=== PATIENT | female | born 1970 | race Caucasian/White ===

== ENCOUNTER → 2017-06-09 | Outpatient (CLI) | payer OTHER ==
[~2017-06-09] MED LIST: ACET-1718 PO; ALBU2.5V36 INH; ALBU8.5H12 IH; BUDE10.25 IH; CHOL10005 PO; ERYT1OIN3 OP; FLUT1DIS28 IH; HYDR115S2 PO; IBUP800T37 PO; MULT1CAP59 PO; ONDA4TAB PO; PNEI IJ; PRED-1 PO; TRAZ-156 PO; [UNRECOGNIZED DRUG - OTHER]
--- NOTE | 2017-06-09 15:28 | RADIOLOGY IMAGING REPORT ---
FACILITY: [facility] PATIENT NAME: LIVAN GARCIA : [id number] MR: [id number] V: [id number] EXAM DATE: [id number] ORDERING PHYSICIAN: RASHEED OCAMPO TECHNOLOGIST: Ashley Brunner PROCEDURE:BILATERAL DIGITAL SCREENING MAMMOGRAM WITH CAD ASSISTED INTERPRETATION & 3D TOMOSYNTHESIS COMPARISON:Prior mammograms 04/08/16, 04/03/15, 02/24/14, 02/14/14, 05/14/12, 02/11/11 INDICATIONS:SCREENING FINDINGS: Dense heterogeneous fibroglandular tissue is seen throughout the breasts. The parenchymal pattern has remained stable allowing for difference in mammographic technique & patient positioning. There is no evidence of malignant appearing mass, malignant appearing calcifications or other secondary sign of malignancy in either breast. DIAGNOSTIC CATEGORY 2--BENIGN FINDING. RECOMMENDATIONS: ROUTINE MAMMOGRAM AND CLINICAL EVALUATION. IMPRESSION: BIRADS 2: Benign finding No significant abnormality is seen. Dictated by: Scarlett Alarcon M.D. on 06/09/2017 at 10:05 Transcribed by: MIGUEL on 06/09/2017 at 10:48 Approved by: Scarlett Alarcon M.D. on 06/09/2017 at 15:27 [facility]
== END ==
LOC: MAMO 01:05
PROVIDERS: ATTEND Obstetrics & Gynecology
DX: Z12.31 Encounter for screening mammogram for malignant neoplasm of breast (principal)
CPT/HCPCS: 77063; 77067

== ENCOUNTER → 2018-07-06 | Outpatient (CLI) | payer OTHER ==
[~2018-07-06] MED LIST changes: -TRAZ-156 PO; +TRAZ50TA34 PO
--- NOTE | 2018-07-10 10:08 | RADIOLOGY IMAGING REPORT ---
FACILITY: [facility] [place] PATIENT NAME: LIVAN GARCIA : [id number] MR: [id number] V: [id number] EXAM DATE: [id number] ORDERING PHYSICIAN: NIMA DORAN TECHNOLOGIST: Liyah Richards PROCEDURE:BILATERAL DIGITAL SCREENING MAMMOGRAM WITH CAD ASSISTED INTERPRETATION & 3D TOMOSYNTHESIS COMPARISON:Prior mammograms 06/09/17, 04/08/16, 04/03/15, 02/24/14, 02/14/14, 05/14/12. INDICATIONS:SCREENING FINDINGS: The breasts are heterogeneously dense which can obscure small masses. Just medial to midline in the posterior depth of the Left breast on the Left CC view is an ovoid mass like area best appreciated on Tomographic slice 17 for which Spot compression view is recommended. Just posterior to midline on the Right MLO view in the middle 1/3 there is an ovoid nodular area for which Spot compression view is recommended. There are also 2 nodular areas in the upper portion of the Right breast on the Right MLO view in the anterior 1/3. All of these are pest appreciated on Tomographic slice 11. In the upper portion of the Left breast in the middle 1/3 on the Left MLO view Tomographic slice 16 is an ovoid mass like area for which Spot compression view is recommended. DIAGNOSTIC CATEGORY 0--INCOMPLETE: NEED ADDITIONAL IMAGING EVALUATION. RECOMMENDATIONS: ADDITIONAL MAMMOGRAPHIC VIEWS REQUIRED: BILATERAL BREASTS. ULTRASOUND: BILATERAL BREASTS. IMPRESSION: BIRADS 0: Incomplete. Additional views of both breasts recommended as described and possibly bilateral breast Ultrasound depending on the additional imaging findings. Dictated by: Scarlett Alarcon M.D. on 07/06/2018 at 9:22 Transcribed by: MIGUEL on 07/06/2018 at 14:10 Approved by: Scarlett Alarcon M.D. on 07/10/2018 at 10:07 [facility]
== END ==
LOC: MAMO 00:47
PROVIDERS: ATTEND Physician Assistant
DX: R92.8 Other abnormal and inconclusive findings on diagnostic imaging of breast (principal)
CPT/HCPCS: 77063; 77067

== ENCOUNTER → 2018-07-18 | Outpatient (CLI) | payer OTHER ==
--- NOTE | 2018-07-19 10:43 | RADIOLOGY IMAGING REPORT ---
FACILITY: [facility] PATIENT NAME: LIVAN GARCIA : [id number] MR: [id number] V: [id number] EXAM DATE: [id number] ORDERING PHYSICIAN: NIMA DORAN TECHNOLOGIST: Alexsandra Zuniga RDMS PROCEDURE:US LEFT BREAST COMPARISON:Made to diagnostic mammogram 07/18/18. INDICATIONS:further evaluation FINDINGS: There are multiple cysts identified in the Left breast from the 9-12 o'clock position the largest measures 1.5cm in diameter and is in the 11 o'clock position. This likely accounts for the recent mammographic finding. DIAGNOSTIC CATEGORY 2--BENIGN FINDING. RECOMMENDATIONS: ROUTINE MAMMOGRAM AND CLINICAL EVALUATION. IMPRESSION: BIRADS 2: Benign finding. There are multiple Left sided breast cysts as described. Dictated by: Scarlett Alarcon M.D. on 07/18/2018 at 16:28 Transcribed by: MIGUEL on 07/19/2018 at 10:02 Approved by: Scarlett Alarcon M.D. on 07/19/2018 at 10:41 [facility]
--- NOTE | 2018-07-19 10:43 | RADIOLOGY IMAGING REPORT ---
FACILITY: [facility] PATIENT NAME: LIVAN GARCIA : [id number] MR: [id number] V: [id number] EXAM DATE: ORDERING PHYSICIAN: NIMA DORAN TECHNOLOGIST: Liyah Richards PROCEDURE:BILATERAL DIAGNOSTIC DIGITAL MAMMOGRAM WITH CAD ASSISTED INTERPRETATION & 3D TOMOSYNTHESIS COMPARISON:Prior mammograms 07/06/18, 06/09/17, 04/08/16, 04/03/15, 02/24/14, 02/14/14, 05/14/12. INDICATIONS:further evaluation FINDINGS: The patient returned for Spot compression views in the Left CC projection and bilateral MLO compressions. The nodular densities described within the Right breast all appear compressible and apparently represented summation shadows. The ovoid mass like area in the upper outer quadrant of the Left breast was re-demonstrated. Today's Left breast Ultrasound demonstrated numerous cysts in the upper outer quadrant of the Left breast which would account for the mammographic findings. DIAGNOSTIC CATEGORY 2--BENIGN FINDING. RECOMMENDATIONS: ROUTINE MAMMOGRAM AND CLINICAL EVALUATION. IMPRESSION: BIRADS 2: Benign finding. There are multiple cysts in the medial upper portion of the Left breast as demonstrated on today's Left breast Ultrasound which would account for the mammographic findings. Dictated by: Scarlett Alarcon M.D. on 07/18/2018 at 16:33 Transcribed by: MIGUEL on 07/19/2018 at 9:57 Approved by: Scarlett Alarcon M.D. on 07/19/2018 at 10:41 [facility]
== END ==
LOC: MAMO 00:35
PROVIDERS: ATTEND Physician Assistant
DX: N60.02 Solitary cyst of left breast (principal)
CPT/HCPCS: 77062; 77066